=== PATIENT | female | born 1955 ===

== ENCOUNTER 2025-06-03 08:06 | Day surgery (SDC) | payer MEDICARE ==
[2025-06-03] VITALS (10 sets, daily range): BP systolic 120–155; BP diastolic 60–84; PULSE 71–94; RESP 19–22; TEMP 97.7–98.7
[~2025-06-03] VITALS: Ht 162.6 cm; Wt 226.8 kg
[2025-06-03] MEDS ORDERED: 0.9%NACL 1000ML 1,000 ML IV ONE (09:14)
[2025-06-03] MEDS ORDERED: FOLI0.8C PO (09:37)
[2025-06-03] MEDS ORDERED: MIRA25TA PO (09:37)
[2025-06-03] MEDS ORDERED: ALBU18HF7 IH (09:37)
[2025-06-03] MEDS ORDERED: LOPE2CAP PO (09:37)
[2025-06-03] MEDS ORDERED: BACLOFEN 5 MG PO (09:37)
[2025-06-03] MEDS ORDERED: METO-408 PO (09:37)
[2025-06-03] MEDS ORDERED: GABA300C PO (09:37)
[2025-06-03] MEDS ORDERED: FERR-72 PO (09:37)
[2025-06-03] MEDS ORDERED: FURO20TA4 PO (09:37)
[2025-06-03] MEDS ORDERED: LOSA100T59 PO (09:37)
[2025-06-03] MEDS ORDERED: AMIT10TA13 PO (09:37)
[2025-06-03] MEDS ORDERED: PANT40TA54 PO (09:37)
[2025-06-03] MEDS ORDERED: FLUT1DIS IH (09:37)
[2025-06-03] MEDS ORDERED: APIX2.5T PO (09:37)
[2025-06-03] MEDS ORDERED: ESCI10TA PO (09:37)
[2025-06-03] MEDS ORDERED: FLUT15.845 NS (09:37)
[2025-06-03] MEDS ORDERED: TIZA4CAP8 PO (09:37)
[2025-06-03] MEDS ORDERED: TRAMADOL 50MG PO (09:37)
[2025-06-03] MEDS ORDERED: ATOR40TA69 PO (09:48)
[2025-06-03] MEDS ORDERED: GLYCOPYRROLATE 0.2 MG/ML 5 ML VIAL ONE (10:49)
[2025-06-03] MEDS ORDERED: MIDAZOLAM HCL 1 MG/ML 2ML VIAL ONE (10:53)
--- NOTE | 2025-06-03 12:00 | NUR ---
PENDING EMS TO ARRIVE
--- NOTE | 2025-06-03 12:10 | NUR ---
REPORT GIVEN TO ALIRIO VAZQUEZ AT [facility]
--- NOTE | 2025-06-03 12:55 | NUR ---
EMS HERE FOR PT TRANSPORT
== END 2025-06-03 13:24 | disposition home or self-care (01) ==
LOC: ENDO 08:06
PROVIDERS: ATTEND Internal Medicine Gastroenterology
DX: K52.9 Noninfective gastroenteritis and colitis, unspecified (principal); I25.10 Atherosclerotic heart disease of native coronary artery without angina pectoris; F31.9 Bipolar disorder, unspecified; E11.9 Type 2 diabetes mellitus without complications; G47.33 Obstructive sleep apnea (adult) (pediatric); Z86.0100 Personal history of colon polyps, unspecified; Z79.4 Long term (current) use of insulin; Z79.01 Long term (current) use of anticoagulants; Z98.84 Bariatric surgery status; Z90.710 Acquired absence of both cervix and uterus; Z98.1 Arthrodesis status; Z96.651 Presence of right artificial knee joint; Z88.5 Allergy status to narcotic agent; Z90.49 Acquired absence of other specified parts of digestive tract; Z79.899 Other long term (current) drug therapy; Z53.8 Procedure and treatment not carried out for other reasons
CPT/HCPCS: 45380; 82948 ×2; J7030; J2250; J2704; J3490 ×3; A4620; A4215